=== PATIENT | female | born 1950 | race Caucasian/White ===

== ENCOUNTER → 2016-09-19 | Outpatient (CLI) | payer OTHER | LOC: FIMAGING 16:58 | PROVIDERS: ATTEND Orthopaedic Surgery | DX: M75.22 Bicipital tendinitis, left shoulder (principal); M75.21 Bicipital tendinitis, right shoulder ==

== ENCOUNTER → 2017-03-27 | Outpatient (CLI) | payer OTHER | LOC: MERGE 17:47 → FIMAGING 17:47 | PROVIDERS: ATTEND Psychiatry & Neurology Neurology | DX: M48.02 Spinal stenosis, cervical region (principal); M46.92 Unspecified inflammatory spondylopathy, cervical region; Z98.1 Arthrodesis status ==

== ENCOUNTER → 2018-06-13 | Outpatient (CLI) | payer OTHER | LOC: FIMAGING 11:35 ==